=== PATIENT | male | born 1995 | race Caucasian/White ===

== ENCOUNTER → 2019-07-19 09:48 | Outpatient (CLI) | payer BC, SELFPAY ==
--- NOTE | 2019-07-19 10:01 | ECG_ITS ---
APPROVED REPORT Exam: Resting ECG HR:70 bpm ECG Measurements Heart Rate 70 AXES HI 132 P 33 QRSd 96 QRS 80 QT 392 T 9 QTc 423 <Conclusion> Sinus rhythm with marked sinus arrhythmia Otherwise normal ECG Electronically signed by : Castillo Morton, 07/20/2019 08:44:08
--- NOTE | 2019-07-19 10:48 | MR_ITS ---
PROCEDURE: MR ANKLE LT WO/W CON CLINICAL INDICATION: RUPTURE OF LEFT ACHILLES TENDON, INITIAL ENCOUNTER Injury with pain in the Achilles region. COMPARISON: No exams were available for comparison TECHNIQUE: Routine multiplanar multi echo sequences are performed without and with gadolinium enhancement. FINDINGS: Unremarkable bone marrow signal intensity. No evidence of fracture. There is some heterogeneous signal intensity within the anterior tibial fibular ligament. Suspect partial tear. A normal ATFL is not identified consistent with tear of the ATFL. The PT FL appears intact. Deltoid ligament appears intact. The posterior tibialis, flexor digitorum and flexor hallucis longus, and peroneal tendons appear intact. The anterior tibialis and extensor tendons appear intact. There is complete tear of the Achilles tendon 7 cm proximal to the insertion upon the calcaneus. The tendon is retracted by 4 cm. There is a moderate amount of heterogeneous increased signal intensity within the gap of the tear. Small amount fluid is present at the talocalcaneal region. IMPRESSION: 1. Type 3 Achilles tendon tear. Please see above for detail. 2. Tear of the ATFL. 3. Possible partial tear or sprain of the anterior tibial fibular ligament Dictated by: Gamaliel Bloom MD 07/21/2019 06:58 Electronically signed by Gamaliel Bloom MD in [place] 07/21/2019 06:58
[2019-07-19 11:29] LABS: Basophils # 0.1 K/mm3 (0-0.2); Basophils % 0.8 % (0.1-2.0); Eosinophils # 0.1 K/mm3 (0.0-0.4); Eosinophils % 1.5 % (0.1-12.0); Hematocrit 44.9 % (42.0-52.0); Hemoglobin 14.8 g/dL (14.1-18.0); Lymphocytes # 1.2 K/mm3 (0.7-4.5); Mean Corpuscular Volume 96.9 fl (80-94); Mean Platelet Volume 8.5 fl (7.4-10.4); Monocytes # 0.4 K/mm3 (0.1-1.0); Monocytes % 7.8 % (1.7-9.3); Neutrophils # 3.8 K/mm3 (1.8-7.8); Neutrophils % 68.8 % (37.0-80.0); Platelet Count 170 K/mm3 (142-424); Red Blood Count 4.63 M/mm3 (4.60-6.20); Red Cell Distribution Width 13.4 % (11.5-17.5); White Blood Count 5.6 K/mm3 (4.8-10.8)
[2019-07-19 12:55] LABS: Chloride 105 mmol/L (98-107); Sodium 138 mmol/L (136-145)
[2019-07-19 12:56] LABS: Potassium 4.6 mmoL/L (3.5-5.1)
[2019-07-19 12:58] LABS: Alanine Aminotransferase 64 U/L (12-78); Anion Gap 14.6 mEq/L (5-15); Aspartate Amino Transferase 49 U/L (17-59); Bilirubin,Total 1.1 mg/dl (0.2-1.3); Blood Urea Nitrogen 20 mg/dl (9-20); Carbon Dioxide 23 mmol/L (22.0-30.0); Estimated Glomerular Filt Rate 81 ml/min (>60); GFR (African American) 98 ML/MIN (>60)
[2019-07-19 12:59] LABS: Albumin Level 4.9 g/dl (3.5-5.0); Alkaline Phosphatase 50 U/L (38-126); Calcium 9.6 mg/dl (8.4-10.2); Globulin 2.5 g/dL (1.3-3.2); Glucose 90 mg/dl (74-100); Total Protein,Serum 7.4 g/dl (6.3-8.2)
== END ==
PROVIDERS: PCP Family Medicine; Visit Provider Family Medicine
DX: Z01.818 Encounter for other preprocedural examination (principal); S86.012A Strain of left Achilles tendon, initial encounter
CPT/HCPCS: 36415; 73723; 80053; 85025; 93005; A9576

== ENCOUNTER 2019-07-24 06:00 | Day surgery (SDC) | payer BC, SELFPAY ==
[2019-07-23 12:14] VITALS: BMI 31.5
[2019-07-24] VITALS (13 sets, daily range): BP systolic 118–151; BP diastolic 49–86; PULSE 64–96; RESP 12–18; TEMP 36.2–43; O2SAT 93–95
--- NOTE | 2019-07-24 08:24 | HMH.ANESCL ---
[facility] Anesthesia Checklist - Structural Data Admitted From: Home Planned Operative Procedure/s: achilles tendon repair Consent for Planned Operative Procedure(s) Verified: Yes - Additional verifications Anesthesia Reactions: Yes (nausea) Hx Blood Transfusions: No Blood Transfusion Reaction: No - Airway Assessment C-Spine Mobility Assessed: Yes TMJ Mobility Assessed: Yes Dentition: Good Dentition - Neurological Assessment Level of Consciousness: Awake, Alert, Appropriate - Anesthesia Plan Anesthesia Risk discussed: Yes Anesthesia Plan: Verified ASA Class: II Anesthesia Type: General w/block - Preoperative Comments Pre-Operative Comments: popliteal and sciatic block exp to pt, pt agrees to proceed [facility] History I have reviewed the patient's past medical history: Yes Medical History: Denies:: Cancer, Diabetes Mellitus Type 1, Diabetes Mellitus Type 2, MRSA, Seizures *Have you ever received a pneumonia vaccine?: No *Have you received a flu vaccine this season?: No Other Medical History: Denies: Blood Transfusion Reaction Anesthesia experience/problems:: none Laterality Cases: Right: Arthroscopy Knee, Bilateral: ACL Repair Other Surgeries: Yes: No Previous Surgery Amputation: No Fractures: No - *Social History Educational Level: Completed College Smoking Status: Never smoker Alcohol Intake: current Alcohol Intake Frequency:: a few times a week Substance Use Type: marijuana Last Used Substance: hours (ago) *Occupational Status:: employed *Travel in the last 8 weeks: None Family Hx:: Diabetes (Mother- gestational ), Cancer (Aunt-breast ), Heart Attack (grandfather ), Stroke (great grandmother(mother's side))
--- NOTE | 2019-07-24 09:45 | XR_ITS ---
PROCEDURE: XR ANKLE LT MIN 3V CLINICAL INDICATION: Post op Achilles, fx fragment excision COMPARISON: No exams were available for comparison FINDINGS: Status post bone fragment removal along posterior aspect of the talus. On the AP view there is a small fragment at the tip of the medial malleolus which could be due to an old avulsion fracture. Posterior splint is present. IMPRESSION: Postsurgical changes Dictated by: Gamaliel Bloom MD 07/24/2019 11:52 Electronically signed by Gamaliel Bloom MD in [place] 07/24/2019 11:52
--- NOTE | 2019-07-24 10:06 | XR_ITS ---
PROCEDURE: XR ANKLE LT 2V CLINICAL INDICATION: ACHILLES REPAIR..CHANDLER FX COMPARISON: MRI LOWER EXTREMITY JOINT RIG from 10/24/2012 FINDINGS: Fluoroscopy time: 17 seconds Os trigonum removed during surgery. IMPRESSION: Status post os trigonum removal Dictated by: Gamaliel Bloom MD 07/24/2019 11:26 Electronically signed by Gamaliel Bloom MD in [place] 07/24/2019 11:26
--- NOTE | 2019-07-24 10:43 | SUR.OPER ---
0817: to lobby to inform family (mother) that incision made at 0815 0913: Maira Barreto RN let family know patient is good, but let his mother know MD is working with worst scenario as they had spoken about before procedure 1030: mother/family updated by Cydney Mata RN 1107: Cydney Mata RN updated mother/family that dressing being applied at this time
--- NOTE | 2019-07-24 11:34 | P.PN_ITS ---
[facility] Anesthesia Record Part I Intake, IV Amount: 2,500 Estimated blood loss (mL): 50 Urine output (mL): 0 Blood Pressure: 143/78 SaO2: 94 Pulse Rate: 96 Respiratory Rate: 12 Temperature: 97.5 F Patient is:: Awake, Stable Stable to PACU at:: 11:30
--- NOTE | 2019-07-24 11:42 | HMH.OPNOTE ---
Date of procedure: 07/24/19 Pre-op Diagnosis:: 1. Left Achilles tendon acute traumatic rupture 2. Left closed Grewal's fracture 3. Left flexor hallucis longus tendon partial tear 4. Left gastrocnemius equinus 5. Left high ankle sprain 6. Left ankle edema 7. Left ankle synovitis 8. Obesity, Class I, BMI 30-34.9 Post-op Diagnosis:: Same Procedure performed:: 1. Left direct open repair of achilles tendon 2. Left excision of Grewal's fracture fragment 3. Left flexor hallucis longus tendon debridement and repair 4. Left gastrocnemius recession 5. Left V - Y achilles lengthening flap 6. Left ankle synovectomy 7. Application of Graft jacket (wound graft) 8. Application of injectable amniotic membrane (Viaflow) 9. Application of posterior splint Surgeon:: Kristel Maya DPM TECHNICAL DOCUMENTATION SPECIALIST:: Darryl Wiggins Anesthesia: GETA, regional (L popliteal, saph nerve block) Estimated blood loss (mL): 30 Clinical Note:: MRI LEFT ANKLE W/WOUT, 07/19/19: Images evaluated by myself. Images reviewed and discussed with patient. MRI shows obvious rupture of achilles tendon several cm proximal to ankle insertion. Edema noted to os trigonium, possible Grewal's fracture. Fluid also noted around FHL tendon. Ankle edema. PRE-OP LEFT ACUTE ACHILLES RUPTURE: DOI: 07/17/19. The patient has tried immobilization, ice, elevation, and NSAIDs. After a long discussion with the patient in regards to the conservative versus surgical treatment for the tendon rupture, the patient has elected to proceed with surgery because they are young and healthy, and it is the quickest return to daily activities. The patient has been instructed on the planned procedure, all risk versus benefits of the procedure discussed. These include but are not limited to: bleeding, infection, nerve and blood vessel damage, need for further surgery, delay in healing of soft tissue or bone, tendon re-rupture, failure of bones to heal, non-union, mal-union, failure of the implant, prolonged pain and recovery, CRPS/RSD, DVT and anesthetic complications. No guarantees were given. All questions fully answered. The patient verbalized understanding and agreed to proceed with surgery. Written consent was obtained. Necessary labs and pre-op testing ordered: CBC, CMP, EKG. Medical clearance per Dr. Gatica. Patient has crutches. Recommend RKS. e-Rx for Percocet 7.5mg # 30, Zofran 4mg # 30, Motrin 800mg # 60, Flexeril 5mg given. We discussed narcotic use in detail. Discussed Rx for Toradol on the DOS. Patient does not smoke. DVT/PE risk discussed. Operative findings:: Left Achilles tendon rupture with 4 cm gapping pre-debridement. The distal attachment into the calcaneus was intact. Synovitic tissue noted to the posterior ankle. Grewal's fracture fragment noted to the posterior ankle off of the talus. No cortical erosion noted to the posterior ankle joint. Synovitic tissue noted to the gastrocnemius muscle. Due to the patient?s body habitus (obesity) and significant traumatic rupture and deformity, this case took 1.5 hours longer than usual. The case was more tedious due to the tears, excessive subcutaneous fat layers and synovitic tissue. Operative note:: On this date and time patient was deemed an appropriate surgical candidate. Anesthesia performed a pre-op regional popliteal nerve block. With informed consent signed, the patient was taken to the operating theater. The patient was positioned supine. General anesthesia was induced. Tourniquet was applied to the left thigh at 250 mmHg. Patient positioned prone and the left lower extremity was prepped and draped in normal sterile fashion. Left direct open repair of achilles tendon: Attention was directed to the posterior leg where a palpable dell was noted. A skin incision mapped out directly over the Achilles tendon. Dissection was carried down through skin and subcutaneous tissue with care to maintain surgical hemostasis and safely treat neurovascular structures. There was a b
--- NOTE | 2019-07-25 12:53 | P.PN_ITS ---
[facility] Anesthesia Record Part II Discharge Time: 20:35 Destination: [facility] PACU nurse assessment reviewed?: Yes Patient Condition:: Good Anesthesia Complications:: None Swallowing reflex intact?: Yes Cyanosis?: No Blood Pressure: 132/72 Pulse Rate: 72 Temperature: 97.6 F Mental Status: Alert & Oriented Pain level:: 3 Nausea and/or vomitting:: None Intake, IV Amount: 2,500
[2019-07-25 12:54] VITALS: BP 132/72; PULSE 72; TEMP 36.4
== END 2019-07-24 13:53 | disposition home or self-care (01) ==
PROVIDERS: PCP Family Medicine; Visit Provider Podiatrist
PROC: (CPT 27650; principal; 2019-07-24 07:30)
DX: S92.132A Displaced fracture of posterior process of left talus, initial encounter for closed fracture (principal); S86.012A Strain of left Achilles tendon, initial encounter; M24.575 Contracture, left foot; S96.012A Strain of muscle and tendon of long flexor muscle of toe at ankle and foot level, left foot, initial encounter; Y93.67 Activity, basketball
CPT/HCPCS: 27650; 27687; 28200; 28120; 27625; 15275; 73600; 73610; 76000; 96374; C1762; J0131; J2405; Q4107

== ENCOUNTER 2020-01-25 15:00 | Outpatient (RCR) | payer BC, SELFPAY ==
--- NOTE | 2019-09-13 15:51 | HMH.PTOPEV ---
PT Outpatient Evaluation Rehab PT Outpatient Evaluation Start: 09/13/19 15:30 Freq: Status: Active Protocol: Document 09/13/19 15:30 LALA (Rec: 09/13/19 15:51 LALA [id number]) Electronically Signed By Sam Ely, PT 09/13/19 15:30 Outpatient Therapy Subjective History Subjective History Pt presents s/p L achilles tendon repair on 07/24/19. Pt reports recent transition from hard cast to walking boot, and also progressed to 25% PWB on LLE w/walking boot and B axillary crutches. Pt reports L ankle/foot tightness/ soreness. 'It feels good to finally move it.' Chief Complaint Pain,Stiff Symptom Type Ache,Dull Symptoms Relieved By Rest/Positioning,Ice Symptoms Aggravated By Standing,Walking Prior Functional Limitations None Current Functional Limitations Standing,Walking,Stairs Symptom Description Constant but Variable Level of pain today (0-10) 2 Pain scale - at its best (0-10) 1 Pain scale - at its worst (0-10) 4 Ankle/Foot Eval Gait Observation General Gait Pattern Observation Antalgic Gait,Wide Based Gait, Decrease Weight Bear (L), Decrease Stride Lngth (L) Assistive Device Ambulation Assistive Device Axillary Crutches Palpation Tenderness left Ankle/Foot Palpation Overall Comment achilles insertion 2-3/4, achilles MT junction 2/4 ROM Ankle/Foot Dorsiflexion w/Knee Extended 0-10 Active Range Motion (degrees) Ankle/Foot Plantar Flexion Active Range 0-45 of Motion (degrees) Ankle/Foot Eversion Active Range of 0-20 Motion (degrees) Ankle/Foot Inversion Active Range of 0-40 Motion (degrees) MMT Ankle Dorsiflexion Strength Grade 4 Good Ankle Plantarflexion Strength Grade 4- Good- Foot Eversion Strength Grade 4 Good Foot Inversion Strength Grade 4 Good Outpatient Therapy Assessment Impairments Problems/Impairmments Palpation Tenderness,Impaired Range of Motion,Impaired Strength,Impaired Gait Pattern ,Impaired Walking,Impaired Standing,Impaired Stair Climbing,Subjective C/O Pain, Impaired Self Care/Self Management Prognosis Rehab Potential Good Clinical Impression Consistent with Diagnosis Yes Short Term Goals Number of Weeks 4
--- NOTE | 2019-10-24 15:18 | HMH.RHREAS ---
Rehab Reassessment Rehab OP Re-assessment Start: 10/24/19 14:50 Freq: Status: Active Protocol: Document 10/24/19 14:50 [email or web address] (Rec: 10/24/19 15:18 LALA [id number]) Electronically Signed By Sam Ely, PT 10/24/19 14:50 Rehab Re-assessment Subjective Subjective PT REPORTS 2/10 L CALF/ ACHILLES PAIN ON VAS, AND FEELS 50% BETTER OVERALL SINCE I EVAL Objective Objective Notes AROM: L ANKLE DF 0-12, DF 0-45 , INV 0-40, EVR 0-25 MMT: L ANKLE DF 4-4+/5, PF 4/5 , INV 4-4+/5, EVR 4+/5 GAIT: WFL W/O AD TTP: 2-3/4 ACHILLES TENDON, 1- 2/4 L GASTROC/SOLEUS MM BELLY Assessment Progress Assessment Progressing as Expected Assessment Notes PT W/IMPROVED GAIT, STRENGTH, AND AROM Patient goals met STG'S 10/21 Goals Not Met STG'S 06/23, LTG'S 02/22 Plan Plan PT TO CONT W/SKILLED P.T. TO MAKE FURTHER IMPROVEMENTS IN AROM, TTP, AND STRENGTH TO ALLOW FOR OPTIMAL FUNCTION Frequency of Therapy 2-3X/WK Duration of therapy 6-8WKS Time and Billing Re-Eval Time 15 Re-Eval Billing Units 1 PHYSICIAN CERTIFICATION: I certify the specified therapy services for Rainer Pereira are required, authorized, and reviewed every 30 days.
--- NOTE | 2019-11-20 15:27 | HMH.RHREAS ---
Rehab Reassessment Rehab OP Re-assessment Start: 10/24/19 14:50 Freq: Status: Active Protocol: Document 11/20/19 15:17 LALA (Rec: 11/20/19 15:27 LALA [id number]) Electronically Signed By Sam Ely, PT 11/20/19 15:17 Rehab Re-assessment Subjective Subjective PT REPORTS NO PAIN, ONLY MILD SORENESS IN ACHILLES ON LEFT, REPORTS FEELING 75% BETTER OVERALL Objective Objective Notes AROM: L ANKLE DF 0-15, DF 0-45 , INV 0-45, EVR 0-25 MMT: L ANKLE DF 4+-5/5, PF 4+/ 5, INV 4+-5/5, EVR 4+-5/5 GAIT: WFL W/O AD TTP: 0-1/4 ACHILLES TENDON, 0/ 4 L GASTROC/SOLEUS MM BELLY Assessment Progress Assessment Progressing as Expected Assessment Notes PT W/IMPROVED ROM, STRENTGH, AND TTP Patient goals met STG'S 12/21 LTG'S 12/23 Goals Not Met LTG'S 06/25 Plan Plan PT TO CONT W/SKILLED P.T. TO MAKE FURTHER IMPROVEMENTS IN AROM, TTP, AND STRENGTH TO ALLOW FOR OPTIMAL FUNCTION Frequency of Therapy 2-3X/WK Duration of therapy 3-4WKS Time and Billing Re-Eval Time 15 Re-Eval Billing Units 1 PHYSICIAN CERTIFICATION: I certify the specified therapy services for Rainer Pereira are required, authorized, and reviewed every 30 days.
--- NOTE | 2019-12-19 15:24 | HMH.RHREAS ---
Rehab Reassessment Rehab OP Re-assessment Start: 10/24/19 14:50 Freq: Status: Active Protocol: Document 12/19/19 15:00 LALA (Rec: 12/19/19 15:24 [email or web address] [id number]) Electronically Signed By Sam Ely, PT 12/19/19 15:00 Rehab Re-assessment Subjective Subjective PT REPORTS NO PAIN, ONLY MILD SORENESS IN ACHILLES ON LEFT, REPORTS FEELING 85% BETTER OVERALL. 'I'M PLAYING GOLF NOW WHICH IS GOOD'. Objective Objective Notes AROM: L ANKLE DF 0-15, DF 0-45 , INV 0-45, EVR 0-25 MMT: L ANKLE DF 5/5, PF 4-4+/5 , INV 5/5, EVR 5/5 GAIT: WFL W/O AD TTP: 0-1/4 ACHILLES TENDON, 0/ 4 L GASTROC/SOLEUS MM BELLY Assessment Progress Assessment Progressing as Expected Assessment Notes improved strength, still limited w/highest level of function-jogging, jumping Patient goals met STG'S 12/21 LTG'S 12/23 Goals Not Met LTG'S 06/25 Plan Plan PT TO CONT W/SKILLED P.T. TO MAKE FURTHER IMPROVEMENTS IN AROM, TTP, AND STRENGTH TO ALLOW FOR OPTIMAL FUNCTION Frequency of Therapy 2-3X/WK Duration of therapy 3-4wks Time and Billing Re-Eval Time 15 Re-Eval Billing Units 1 PHYSICIAN CERTIFICATION: I certify the specified therapy services for Rainer Pereira are required, authorized, and reviewed every 30 days.
--- NOTE | 2020-01-23 15:44 | HMH.RHREAS ---
Rehab Reassessment Rehab OP Re-assessment Start: 10/24/19 14:50 Freq: Status: Active Protocol: Document 01/23/20 15:04 LALA (Rec: 01/23/20 15:44 LALA [id number]) Electronically Signed By Sam lEy, PT 01/23/20 15:04 Rehab Re-assessment Subjective Subjective PT REPORTS NO PAIN and no problems with L achilles/LE function or pain for ~2 weeks. Pt reports surgical incision 'is still trying to heal up, but other than that I'm fine'. Objective Objective Notes AROM: L ANKLE DF 0-15, DF 0-45 , INV 0-45, EVR 0-25 MMT: L ANKLE DF 5/5, PF 5/5, INV 5/5, EVR 5/5 GAIT: WFL W/O AD-pt executed normal gait with treadmill jogging @7.0mph this pm TTP: 0/4 ACHILLES TENDON, 0/4 L GASTROC/SOLEUS MM BELLY Assessment Progress Assessment Progressing as Expected Assessment Notes pt WNL/WFL all objective measures-will follow-up w/ referring physician for incision consult Patient goals met STG'S 12/21 LTG'S 02/22 Plan Plan PT TO EXECUTE ONE MORE SKILLED P.T. VISIT TO RE-CHECK STATUS OF SURGICAL INCISION W/CHILDREN COUNSELOR Frequency of Therapy 1X/WK Duration of therapy 1WK Time and Billing Re-Eval Time 15 Re-Eval Billing Units 1 PHYSICIAN CERTIFICATION: I certify the specified therapy services for Rainer Pereira are required, authorized, and reviewed every 30 days.
== END 2020-01-25 15:47 | disposition home or self-care (01) ==
LOC: PT 15:00
PROVIDERS: PCP Family Medicine; Visit Provider Podiatrist
DX: M77.52 Other enthesopathy of left foot and ankle; S86.012A Strain of left Achilles tendon, initial encounter; S92.132A Displaced fracture of posterior process of left talus, initial encounter for closed fracture
CPT/HCPCS: 20560; 97010; 97014; 97016; 97110; 97112; 97140; 97163; 97164; G0283

== ENCOUNTER 2020-06-23 11:13 | Emergency (ER) | payer OTHER, SELFPAY ==
[2020-06-23 11:34] VITALS: BP 140/81; PULSE 79; RESP 18; TEMP 36.6; O2SAT 95; BMI 30.7
[2020-06-23 11:53] LABS: UTC Strep Screen (Rapid) Negative (Negative)
[2020-06-23 11:54] LABS: UTC Influenza A Antigen Negative (Negative); UTC Influenza B Antigen Negative (Negative)
--- NOTE | 2020-06-23 12:15 | HMH.EDUTC ---
[facility] Disposition Clinical Impression: Viral syndrome, Exposure to COVID-19 virus Disposition: Home, Self-Care Condition on Discharge: Good Instructions: DI for Viral Syndrome, Preventing the Spread of Coronavirus Discharge Instructions Additional Instructions: Drink plenty of fluids. Take tylenol for pain or fever. Return if you begin to have difficulty breathing. Follow up with your regular doctor. GO TO THE ER FOR ANY WORSENING SYMPTOMS Prescriptions: Ondansetron [Zofran 4mg ODT] 4 mg PO Q8HP PRN #12 tab.rapdis PRN Reason: Nausea Transmission Status: Received by [facility] Referrals: Jacob Gatica MD [Primary Care Provider] - Forms: Work/School Release Time of Disposition: 12:17 Medical Decision Making - Medical Records Medical records reviewed: No: I reviewed the patient's medical records. - Pieter Inquiry Pt receiving controlled substance: No Vital Signs: 06/23/20 11:34 06/23/20 12:27 Temperature 98 F 98 F Temperature Source Oral Tympanic Pulse Rate 74 Pulse Rate [Right] 79 Respiratory Rate 18 16 Blood Pressure 139/79 Blood Pressure [Right Arm] 140/81 Blood Pressure Mean [Right Arm] 100 Blood Pressure Source [Right Arm] Automatic Cuff Blood Pressure Position [Right Arm] Sitting 02 Sat by Pulse Oximetry 95 Oxygen Delivery Method Room Air - Lab Data Lab results reviewed: Yes: I reviewed the patient's lab results. Lab Results 06/23/20 11:30: Influenza Type A Ag Negative, Influenza Type B Ag Negative 06/23/20 11:30: Strep Scn Rapid Clinic Negative Orders (Tests/Meds): ORDERS Category Date Time Status Strep Screen Confirmation Stat Micro 06/23/20 11:30 Received [facility] HPI - General Stated complaint: Wants Covid Test Time Seen by Provider: 06/23/20 12:15 Mode of Arrival: Ambulatory Source of Information: Patient Limitations: No Limitations Description of Symptoms (Recalled from Triage Doc. by RN): sore throat and body aches. HEENT Symptoms (Recalled from RN notes): Yes (sore throat) Resp Symptoms (Recalled from RN notes): No Skin Symptoms (Recalled from RN notes): No MS Symptoms (Recalled from RN notes): Yes (body aches) Functional Status (Recalled from RN notes): na - History of Present Illness Provider Complaint: He states that for the past 1 day he has had body aches and he has felt bad. He denies any known exposure to covid-19. - Related Data Home Medications Medication Instructions Recorded Confirmed dapsone 100 mg tablet 100 mg PO DAILY 03/21/18 05/06/20 Previous Rx's Medication Instructions Recorded Ondansetron [Zofran 4mg ODT] 4 mg PO Q8HP PRN #12 tab.rapdis 06/23/20 Allergies Allergy/AdvReac Type Severity Reaction Status Date / Time gluten Allergy Unknown Verified 06/23/20 11:38 allergy reaction - Worker's Comp Is this a Worker's Comp case?: No [facility] History - Hepatitis A Screen Drug use history?: No High risk sexual behaviors?: No History of sexually transmitted infection?: No Currently employed?: No Childcare worker?: No Do you have indoor plumbing?: Yes Do you have electricity?: Yes Attestation statement:: This patient has been screened for Hepatitis A risk factors. I have reviewed the patient's past medical history: Yes Medical History: Denies:: Cancer, Diabetes Mellitus Type 1, Diabetes Mellitus Type 2, MRSA, Seizures Other Medical History: Denies: Blood Transfusion Reaction Laterality Cases: Right: Arthroscopy Knee, Bilateral: ACL Repair Other Surgeries: Yes: No Previous Surgery Amputation: No Fractures: No - Social History Smoking Status: Never smoker Alcohol Intake: never Alcohol Intake Frequency:: a few times a week Substance Use Type: marijuana Occupational Status: employed Family Hx:: Diabetes, Cancer, Heart Attack, Stroke ROS Obtained: Yes All systems reviewed & no additional complaints - Constitutional Constitutional: Reports system reviewed and no
[2020-06-23 12:27] VITALS: BP 139/79; PULSE 74; RESP 16; TEMP 36.6
== END 2020-06-23 12:28 | disposition home or self-care (01) ==
PROVIDERS: Emergency Provider Nurse Practitioner Family; PCP Family Medicine
DX: Z20.822 Contact with and (suspected) exposure to COVID-19 (principal); B34.9 Viral infection, unspecified
CPT/HCPCS: 87804; 87880; 99202; G0463; U0003

== ENCOUNTER → 2020-08-05 15:46 | Outpatient (POV) | payer OTHER, SELFPAY ==
[2020-08-05 17:03] LABS: Basophils # 0.1 K/mm3 (0-0.2); Eosinophils # 0.1 K/mm3 (0.0-0.4); Eosinophils % 2.2 % (0.1-12.0); Hematocrit 43.1 % (42.0-52.0); Hemoglobin 14.5 g/dL (14.1-18.0); Lymphocytes # 1.5 K/mm3 (0.7-4.5); Lymphocytes % 29.1 % (10-50); Mean Corpuscular HGB Conc 33.6 g/dL (31.8-35.4); Mean Corpuscular Hemoglobin 32.1 pg (27.0-31.2); Mean Corpuscular Volume 95.6 fl (80-94); Monocytes # 0.5 K/mm3 (0.1-1.0); Monocytes % 8.8 % (1.7-9.3); Neutrophils # 3.1 K/mm3 (1.8-7.8); Neutrophils % 58.9 % (37.0-80.0); Platelet Count 173 K/mm3 (142-424); Red Blood Count 4.51 M/mm3 (4.60-6.20); Red Cell Distribution Width 13.7 % (11.5-17.5); White Blood Count 5.2 K/mm3 (4.8-10.8)
[2020-08-05 18:25] LABS: Alanine Aminotransferase 43 U/L (12-78); Albumin Level 4.9 g/dl (3.5-5.0); Alkaline Phosphatase 53 U/L (38-126); Anion Gap 15.3 mEq/L (5-15); Aspartate Amino Transferase 35 U/L (17-59); Bilirubin,Total 0.8 mg/dl (0.2-1.3); Blood Urea Nitrogen 14 mg/dl (9-20); Carbon Dioxide 23 mmol/L (22.0-30.0); Chloride 105 mmol/L (98-107); Estimated Glomerular Filt Rate 80 ml/min (>60); GFR (African American) 97 ML/MIN (>60); Globulin 2.5 g/dL (1.3-3.2); Glucose 92 mg/dl (74-100); Potassium 4.3 mmoL/L (3.5-5.1); Sodium 139 mmol/L (136-145); Total Protein,Serum 7.4 g/dl (6.3-8.2)
== END ==
PROVIDERS: Visit Provider Dermatology
DX: R21 Rash and other nonspecific skin eruption (principal)
CPT/HCPCS: 36415; 80053; 85025

== ENCOUNTER → 2021-03-03 12:57 | Outpatient (POV) | payer OTHER, SELFPAY | PROVIDERS: Visit Provider Dermatology | DX: Z00.00 Encounter for general adult medical examination without abnormal findings (principal) ==

== ENCOUNTER → 2022-05-04 08:01 | Outpatient (POV) | payer OTHER, SELFPAY | PROVIDERS: Visit Provider Dermatology | DX: Z00.00 Encounter for general adult medical examination without abnormal findings (principal) ==

== ENCOUNTER 2023-07-04 14:52 | Outpatient (CLI) | payer BC, SELFPAY ==
[2023-07-04 15:14] LABS: Basophils % 0.6 % (0.1-2.0); Eosinophils # 0.1 K/mm3 (0.0-0.4); Eosinophils % 2.4 % (0.1-12.0); Hematocrit 44.1 % (42.0-52.0); Hemoglobin 14.9 g/dL (14.1-18.0); Lymphocytes # 1.7 K/mm3 (0.7-4.5); Lymphocytes % 30.8 % (10-50); Mean Corpuscular HGB Conc 33.7 g/dL (31.8-35.4); Mean Corpuscular Hemoglobin 32.3 pg (27.0-31.2); Mean Corpuscular Volume 95.9 fl (80-94); Mean Platelet Volume 8.9 fl (7.4-10.4); Monocytes # 0.4 K/mm3 (0.1-1.0); Monocytes % 7.6 % (1.7-9.3); Neutrophils # 3.2 K/mm3 (1.8-7.8); Neutrophils % 58.6 % (37.0-80.0); Platelet Count 153 K/mm3 (142-424); Red Cell Distribution Width 13.5 % (11.5-17.5); White Blood Count 5.5 K/mm3 (4.8-10.8)
[2023-07-04 15:40] LABS: Alanine Aminotransferase 39 U/L (12-78); Albumin Level 4.7 g/dl (3.5-5.0); Albumin/Globulin Ratio 1.8 (1.1-1.8); Alkaline Phosphatase 51 U/L (38-126); Anion Gap 9.3 mEq/L (5-15); Aspartate Amino Transferase 32 U/L (17-59); Bilirubin,Total 1.1 mg/dl (0.2-1.3); Blood Urea Nitrogen 12 mg/dl (9-20); Calcium 9.5 mg/dl (8.4-10.2); Carbon Dioxide 29 mmol/L (22.0-30.0); Chloride 106 mmol/L (98-107); Estimated Glomerular Filt Rate 79 ml/min (>60); GFR (African American) 95 ML/MIN (>60); Globulin 2.6 g/dL (1.3-3.2); Glucose 95 mg/dl (74-100); Potassium 4.3 mmoL/L (3.5-5.1); Sodium 140 mmol/L (136-145); Total Protein,Serum 7.3 g/dl (6.3-8.2)
== END 2023-07-04 23:59 ==
PROVIDERS: PCP Family Medicine; Visit Provider Dermatology
DX: L13.0 Dermatitis herpetiformis (principal)
CPT/HCPCS: 36415; 80053; 85025

== ENCOUNTER 2024-08-21 14:52 | Outpatient (CLI) | payer BC, SELFPAY ==
[2024-08-21 15:31] LABS: Basophils # 0.1 K/mm3 (0-0.2); Basophils % 1.2 % (0.1-2.0); Eosinophils # 0.1 K/mm3 (0.0-0.4); Eosinophils % 2.2 % (0.1-12.0); Hematocrit 45.5 % (42.0-52.0); Lymphocytes # 0.7 K/mm3 (0.7-4.5); Lymphocytes % 17.2 % (10-50); Mean Corpuscular Hemoglobin 32.1 pg (27.0-31.2); Mean Corpuscular Volume 97.4 fl (80-94); Mean Platelet Volume 9.9 fl (7.4-10.4); Monocytes # 0.4 K/mm3 (0.1-1.0); Monocytes % 10.6 % (1.7-9.3); Neutrophils # 2.8 K/mm3 (1.8-7.8); Neutrophils % 68.3 % (37.0-80.0); Platelet Count 134 K/mm3 (142-424); Red Blood Count 4.67 M/mm3 (4.60-6.20); Red Cell Distribution Width 13.2 % (11.5-17.5); White Blood Count 4.1 K/mm3 (4.8-10.8)
[2024-08-21 15:52] LABS: Alanine Aminotransferase 31 U/L (12-78); Albumin Level 4.5 g/dl (3.5-5.0); Albumin/Globulin Ratio 1.9 (1.1-1.8); Alkaline Phosphatase 45 U/L (38-126); Anion Gap 14.2 mEq/L (5-15); Aspartate Amino Transferase 29 U/L (17-59); Bilirubin,Total 1.3 mg/dl (0.2-1.3); Blood Urea Nitrogen 14 mg/dl (9-20); Calcium 9.2 mg/dl (8.4-10.2); Carbon Dioxide 25 mmol/L (22.0-30.0); Chloride 105 mmol/L (98-107); Estimated Glomerular Filt Rate 71 ml/min (>60); GFR (African American) 85 ML/MIN (>60); Globulin 2.4 g/dL (1.3-3.2); Glucose 101 mg/dl (74-100); Potassium 4.2 mmoL/L (3.5-5.1); Sodium 140 mmol/L (136-145); Total Protein,Serum 6.9 g/dl (6.3-8.2)
== END 2024-08-21 23:59 | disposition home or self-care (01) ==
LOC: LAB 14:55
PROVIDERS: PCP Family Medicine; Visit Provider Dermatology
DX: L13.0 Dermatitis herpetiformis (principal)
CPT/HCPCS: 36415; 80053; 85025

== ENCOUNTER 2024-10-06 02:16 | Emergency (ER) | payer BC, SELFPAY ==
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
[2024-10-06 02:24] VITALS: BP 157/98; PULSE 92; RESP 16; TEMP 36.6; O2SAT 96; BMI 28.7
[2024-10-06 02:52] VITALS: BP 157/98; PULSE 109; RESP 16; TEMP 36.6; O2SAT 98
--- NOTE | 2024-10-06 02:55 | PC.NURSE ---
Patient ready to discharge; police waiting in room for legal blood work
== END 2024-10-06 04:07 | disposition home or self-care (01) ==
PROVIDERS: Emergency Provider Emergency Medicine
DX: Z00.8 Encounter for other general examination (principal)
CPT/HCPCS: 99281